=== PATIENT | female | born 1940 | race Caucasian/White ===

== ENCOUNTER 2018-02-22 21:09 | Emergency (ER) | payer MEDICARE, BC, MEDICAID ==
--- NOTE | 2018-02-22 21:43 | EDM.PDOC ---
ED HPI GENERAL MEDICAL PROBLEM - General Chief Complaint: Trauma Stated Complaint: Fall yesterday, head/facial injuries, neck pain Time Seen by Provider: 02/22/18 21:09 Source of Information: Reports: Patient, Family, RN, RN Notes Reviewed History Limitations: Reports: No Limitations - History of Present Illness INITIAL COMMENTS - FREE TEXT/NARRATIVE: Patient is brought to the ED at [facility] by family after she sustained a fall yesterday at the shelter. According to patients daughter this was an unwitnessed fall. She states the patient was walking out of her room with a hand full of shoes when she tripped over her own feet. Apparently the patient hit her head on the wall and then face planted into the floor. Another resident alerted staff. The patient was watch in the NH over the past 24 hours. The patient has a considered nosebleed s/p fall, but that has stopped. Today, the daughter noticed the patient was complaining of neck pain and headache. She has a resolving hematoma over the left forehead. Patient has an abrasion to her nose. Patient's only complaint is neck pain. She currently denies any headache. She denies any visual field disturbances. Family states patient is normally steady on her feet. Patient denies any jaw pain. Patient is able to speak normally, but is confused due to advanced dementia. Patient denies any bowel or bladder incontinence. She denies any hip pain. No numbness, tingling, or paresthesia of any extremity. Onset Date: 02/21/18 - Related Data Allergies Allergy/AdvReac Type Severity Reaction Status Date / Time Penicillins Allergy Cannot Verified 02/22/18 21:40 Remember sertraline [From Zoloft] Allergy Cannot Verified 02/22/18 21:40 Remember Sulfa (Sulfonamide Allergy Rash Verified 02/22/18 21:40 Antibiotics) Home Meds: Home Meds ARIPiprazole [Aripiprazole] 10 mg PO DAILY 02/22/18 [History] Folic Acid 1 mg PO DAILY 02/22/18 [History] Furosemide 20 mg PO DAILY 02/22/18 [History] LORazepam 0.25 mg PO BID 02/22/18 [History] Memantine HCl 10 mg PO BID 02/22/18 [History] Mirtazapine 30 mg PO DAILY 02/22/18 [History] Potassium Chloride [Potassium Chloride Solution] 15 ml PO DAILY 02/22/18 [ History] buPROPion HCl [Wellbutrin SR] 150 mg PO DAILY 02/22/18 [History] buPROPion HCl [Wellbutrin Xl] 300 mg PO DAILY 02/22/18 [History] Review of Systems - Review of Systems Review Of Systems: See Below Constitutional: Denies: Chills, Fever Eyes: Reports: Glasses. Denies: Blurred Vision, Decreased Acuity, Vision Change Ears: Denies: Dizziness, Pain, Bloody Discharge Nose: Reports: Previous Injury (abrasion to nose). Denies: Pain, Bloody Discharge Mouth/Throat: Denies: Bleeding, Pain, Difficulty Swallowing, Painful Swallowing Respiratory: Denies: Shortness of Breath, Cough Cardiovascular: Denies: Chest Pain, Palpitations GI/Abdominal: Denies: Abdominal Pain, Nausea, Vomiting Musculoskeletal: Reports: Neck Pain, Back Pain, Muscle Pain, Muscle Stiffness. Denies: Arm Pain, Hand Pain, Leg Pain Skin: Reports: Bruising (around eye and left cheek; upper left forehead from resolving hematoma) Neurological: Reports: Confusion (chronic due to advanced dementia), Headache. Denies: Numbness, Paresthesia, Tingling, Trouble Speaking, Difficulty Walking, Weakness ED EXAM, GENERAL - Physical Exam Exam: See Below Exam Limited By: No Limitations General Appearance: Alert, No Apparent Distress Eye Exam: Bilateral Eye: EOMI, Normal Inspection, PERRL Ears: Normal External Exam, Normal Canal, Normal TMs Ear Exam: Bilateral Ear: TM normal Nose: Normal Inspection, Normal Mucosa, No Blood, Nasal Tenderness (due to abrasion to tip and bridge of nose). No: Nasal Deformity Throat/Mouth: Normal Inspection, Normal Oropharynx Head: Normocephalic, Facial Tenderness (around eyes and left forehead from fall yesterday) Neck: Normal Inspection, Full Range of Motion, Tender Lateral Respiratory/Chest: No Respiratory Distress, Lungs Clear, Normal Breath Sounds Cardiovascular: Normal Peripheral Pulses, Regular Rate, Rhythm Peripheral Pulses: 2+: Radial (L), Radial (R) GI/Abdominal: Normal Bowel Sounds, Soft, Non-Tender Back Exam: Normal Inspection, Paraspinal Tenderness (thoracic and lower lumbar) Neurological: Alert, Confused (due to chronic advanced dementia), Disoriented Skin Exam: Warm, Dry, Intact, Ecchymosis (around eyes; nose; left forehead) Course - Vital Signs Last Recorded V/S: Last Vital Signs Temp 35.9 C 02/22/18 21:12 Pulse 78 02/22/18 21:12 Resp 16 02/22/18 21:12 BP 154/80 H 02/22/18 21:12 Pulse Ox 100 02/22/18 21:12 - Orders/Labs/Meds Orders: Active Orders 24 hr Category Date Time Status Cervical Spine wo Cont [CT] Stat Exams 02/22/18 21:42 Taken Head wo Cont [CT] Stat Exams 02/22/18 21:42 Taken Lumbar Spine wo Cont [CT] Stat Exams 02/22/18 21:42 Taken Max Facial Sinus wo Cont [CT] Stat Exams 02/22/18 21:51 Taken Thoracic Spine wo Cont [CT] Stat Exams 02/22/18 21:42 Taken Labs: Laboratory Tests 02/22/18 02/22/18 02/22/18 Range/Units 22:17 22:17 22:17 WBC 5.5 (4.0-10.0) x10^3/uL RBC 4.41 (4.00-5.50) x10^6/uL Hgb 13.7 (12.0-16.0) g/dL Hct 41.0 (33.0-47.0) % MCV 93.0 (78.0-93.0) fL MCH 31.1 (26.0-32.0) pg MCHC 33.4 (32.0-36.0) g/dL RDW Coeff of Juan 13.7 (10.0-15.0) % Plt Count 182 (130-400) x10^3/uL Neut % (Auto) 64.4 (50.0-80.0) % Lymph % (Auto) 24.2 L (25.0-50.0) % Brule % (Auto) 9.7 (2.0-11.0) % Eos % (Auto) 1.3 (0.0-4.0) % Baso % (Auto) 0.4 (0.2-1.2) % PT 10.3 (9.6-11.4) SEC INR 1.0 L (2.0-3.5) Sodium 145 (136-145) mmol/L Potassium 3.4 L (3.5-5.1) mmol/L Chloride 103 (98-107) mmol/L Carbon Dioxide 33 H (21-32) mmol/L Anion Gap 12.4 (10-20) mmol/L BUN 17 (7-18) mg/dL Creatinine 1.2 H (0.55-1.02) mg/dL Est Cr Clr Drug Dosing 27.75 mL/min Estimated GFR (MDRD) 43 Glucose 92 (74-106) mg/dL Calcium 9.4 (8.5-10.1) mg/dL - Radiology Interpretation Free Text/Narrative:: CT Head: Left forehead swelling extending into the nasal tissues; associated nondisplaced upper nasal bone fracture incompletely visualized. CT Max/Facial: Acute nasal bone fractures nondisplaced with surrounding facial soft tissue swelling CT C-spine: No acute fracture CT T-spine: No acute fracture CT L-spine: No acute fracture See scanned reports in EMR CT Results Date: 02/22/18 CT Results Time: 22:41 Departure - Departure Time of Disposition: 22:57 Disposition: Home, Self-Care 01 Condition: Fair Clinical Impression: Soft tissue swelling Nasal bone fx-closed Qualifiers: Encounter type: initial encounter Qualified Code(s): S02.2XXA - Fracture of nasal bones, initial encounter for closed fracture Fall Qualifiers: Encounter type: initial encounter Qualified Code(s): W19.XXXA - Unspecified fall, initial encounter Closed head injury without loss of consciousness Qualifiers: Encounter type: initial encounter Qualified Code(s): S09.90XA - Unspecified injury of head, initial encounter - Discharge Information *PRESCRIPTION DRUG MONITORING PROGRAM REVIEWED*: Not Applicable *COPY OF PRESCRIPTION DRUG MONITORING REPORT IN PATIENT DORITA: Not Applicable Instructions: Nasal Fracture, Head Injury, Adult, Fall Prevention in the Home Referrals: Christine Olvera DO [Primary Care Provider] - Forms: ED Department Discharge Additional Instructions: 1. Stay well hydrated and rest 2. Schedule Tylenol 650 mg by mouth every 4 hours for 3 doses, then return to as needed dosing 3. Neuro checks every 4 hours for 24 hours, then stop 4. Apply ice to nasal bridge as able to help with swelling/pain 5. Give one extra dose of KCL solution 20meg/15ml (10%) 6. Follow up with Dr. Olvera next week for a recheck to make sure everything is healing ok - Problem List Review Problem List Initiated/Reviewed/Updated: Yes - My Orders Last 24 Hours: My Active Orders 02/22/18 21:42 Cervical Spine wo Cont [CT] Stat Head wo Cont [CT] Stat Lumbar Spine wo Cont [CT] Stat Thoracic Spine wo Cont [CT] Stat 02/22/18 21:51 Max Facial Sinus wo Cont [CT] Stat - Assessment/Plan Last 24 Hours: My Active Orders 02/22/18 21:42 Cervical Spine wo Cont [CT] Stat Head wo Cont [CT] Stat Lumbar Spine wo Cont [CT] Stat Thoracic Spine wo Cont [CT] Stat 02/22/18 21:51 Max Facial Sinus wo Cont [CT] Stat Assessment:: Nasal bone fracture Fall [facility] w/o LOC
[2018-02-22 22:36] LABS: ANION GAP 12.4 mmol/L (10-20)
== END 2018-02-22 23:10 | disposition home or self-care (01) ==
LOC: VM.ED 21:09
DX: S02.2XXA Fracture of nasal bones, initial encounter for closed fracture (principal); S09.90XA Unspecified injury of head, initial encounter; R22.9 Localized swelling, mass and lump, unspecified; F03.90 Unspecified dementia, unspecified severity, without behavioral disturbance, psychotic disturbance, mood disturbance, and anxiety; W01.198A Fall on same level from slipping, tripping and stumbling with subsequent striking against other object, initial encounter; Y92.129 Unspecified place in nursing home as the place of occurrence of the external cause; Z88.0 Allergy status to penicillin; Z88.2 Allergy status to sulfonamides; Z88.8 Allergy status to other drugs, medicaments and biological substances
CPT/HCPCS: 36415; 70450; 70486; 72125; 72128; 72131; 80048; 85025; 85610; 99285

== ENCOUNTER 2018-07-12 20:13 | Emergency (ER) | payer MEDICARE, BC, MEDICAID ==
--- NOTE | 2018-07-12 20:36 | EDM.PDOC ---
ED HPI GENERAL MEDICAL PROBLEM - General Chief Complaint: Upper Extremity Injury/Pain Stated Complaint: FELL Time Seen by Provider: 07/12/18 20:20 Source of Information: Reports: Patient, EMS, EMS Notes Reviewed, Family History Limitations: Reports: Altered Mental Status (Patient has Alzheimer's) - History of Present Illness INITIAL COMMENTS - FREE TEXT/NARRATIVE: Patient is brought into the emergency department by EMS for a left arm injury. Patient was in the clinic this afternoon for an appointment regarding her left shoulder was found that she did have a slight fracture nondisplaced on her left shoulder. Patient had fallen a couple weeks ago and is followed up today in the clinic. They placed her in a shoulder sling and suggested she follow up with orthopedic. The patient was sent back to the [facility]. It is unknown exactly what happened however the patient was allowed to use the restroom by herself the staff came in a short time afterwards and found that she was sitting on the floor laying on the left shoulder. For safety precautions they wanted her to be checked out. Patient was transported by EMS for further evaluation and management. Currently the patient denies having any pain, chest pain, shortness breath, dizziness, lightheadedness, any GI upset, hip pain or edema. Onset: Sudden Improves with: Reports: None Worsens with: Reports: None Associated Symptoms: Reports: No Other Symptoms - Related Data Allergies Allergy/AdvReac Type Severity Reaction Status Date / Time Penicillins Allergy Cannot Verified 07/12/18 20:44 Remember sertraline [From Zoloft] Allergy Cannot Verified 07/12/18 20:44 Remember Sulfa (Sulfonamide Allergy Rash Verified 07/12/18 20:44 Antibiotics) Home Meds: Home Meds ARIPiprazole [Aripiprazole] 10 mg PO DAILY 02/22/18 [History] Folic Acid 1 mg PO DAILY 02/22/18 [History] Furosemide 20 mg PO DAILY 02/22/18 [History] LORazepam 0.25 mg PO BID 02/22/18 [History] Memantine HCl 10 mg PO BID 02/22/18 [History] Mirtazapine 30 mg PO DAILY 02/22/18 [History] Potassium Chloride [Potassium Chloride Solution] 15 ml PO DAILY 02/22/18 [ History] buPROPion HCl [Wellbutrin SR] 150 mg PO DAILY 02/22/18 [History] buPROPion HCl [Wellbutrin Xl] 300 mg PO DAILY 02/22/18 [History] Past Medical History Cardiovascular History: Reports: High Cholesterol, Hypertension Gastrointestinal History: Reports: Chronic Constipation Psychiatric History: Reports: Alzheimers Disease, Dementia, Depression, Psychosis Review of Systems - Review of Systems Review Of Systems: See Below Constitutional: Reports: No Symptoms Eyes: Reports: No Symptoms Ears: Reports: No Symptoms Nose: Reports: No Symptoms Mouth/Throat: Reports: No Symptoms Respiratory: Reports: No Symptoms Cardiovascular: Reports: No Symptoms GI/Abdominal: Reports: No Symptoms Genitourinary: Reports: No Symptoms Musculoskeletal: Reports: Arm Pain (left shoulder pain ) Skin: Reports: No Symptoms Neurological: Reports: No Symptoms Psychiatric: Reports: Other (alzhiemers) ED EXAM, GENERAL - Physical Exam Exam: See Below Exam Limited By: No Limitations General Appearance: Alert, WD/WN, No Apparent Distress Head: Atraumatic, Normocephalic Neck: Normal Inspection, Supple, Non-Tender Respiratory/Chest: No Respiratory Distress, Lungs Clear, No Accessory Muscle Use , Chest Non-Tender Cardiovascular: Normal Peripheral Pulses, Regular Rate, Rhythm Back Exam: Normal Inspection, Full Range of Motion Extremities: Normal Inspection, Normal Range of Motion, Other (abrasion left hip. no bruising, swelling, or redness noted. ROM intact with no pain noted) Neurological: Alert, CN II-XII Intact, Normal Gait, Normal Reflexes Psychiatric: Normal Affect, Normal Mood Skin Exam: Warm, Dry, Intact, Normal Color, Other (abrasions noted to both knees abrasion to left hip. No hematomas, redness, swelling, or bleeding noted ) Course - Orders/Labs/Meds Orders: Active Orders 24 hr Category Date Time Status Humerus Lt [CR] Stat Exams 07/12/18 20:29 Taken Shoulder Comp Lt [CR] Stat Exams 07/12/18 21:04 Taken - Re-Assessments/Exams Free Text/Narrative Re-Assessment/Exam: 07/12/18 21:43 Pt denies any pain or concerns. VSS. Pt would like to go home Departure - Departure Time of Disposition: 21:45 Disposition: Home, Self-Care 01 Condition: Good Clinical Impression: Fall Qualifiers: Encounter type: initial encounter Qualified Code(s): W19.XXXA - Unspecified fall, initial encounter - Discharge Information *PRESCRIPTION DRUG MONITORING PROGRAM REVIEWED*: Not Applicable *COPY OF PRESCRIPTION DRUG MONITORING REPORT IN PATIENT DORITA: Not Applicable Instructions: Fall Prevention in Hospitals, Adult Forms: ED Department Discharge Additional Instructions: 1. wear shoulder brace until being evaluated via orthopedic 2. Can take ibuprofen or Tylenol for pain and discomfort 3. And use ice over the affected extremity 20 minute intervals 3-4 times a day 4. Follow-up with PCP as needed 5. Activity and diet as tolerated 6. Call with any questions or concerns - My Orders Last 24 Hours: My Active Orders 07/12/18 20:29 Humerus Lt [CR] Stat 07/12/18 21:04 Shoulder Comp Lt [CR] Stat - Assessment/Plan Last 24 Hours: My Active Orders 07/12/18 20:29 Humerus Lt [CR] Stat 07/12/18 21:04 Shoulder Comp Lt [CR] Stat Assessment:: 1. left shoulder injury/pain known fracture new fall Plan: 1. Xray completed in ER. Results reviewed with the patient and family 2. No acute findings on X-ray. Pt will be transferred back to the half-way with no additional orders 3. Pt is advised to continue to wear the sling until evaluated by orthopedic
--- NOTE | 2018-07-13 13:14 | CR ---
[id number] RAD/RAD Shoulder Left 2V Min EXAM: 3 VIEWS LEFT SHOULDER. INDICATION: FALL. COMPARISON: None. DISCUSSION: No fracture, dislocation or other acute osseous abnormality. The visualized left lung is clear. IMPRESSION: 1. No acute osseous abnormalities. French Myers DO 07/13/18 [id number] Thank you for allowing us to participate in the care of your patient.
--- NOTE | 2018-07-13 13:15 | CR ---
[id number] RAD/RAD Humerus Left 2V EXAM: 2 VIEWS LEFT HUMERUS. INDICATION: FALL. COMPARISON: None. DISCUSSION: No fracture, dislocation or other acute osseous abnormality. IMPRESSION: 1. Negative exam. French Myers DO 07/13/18 1314 Thank you for allowing us to participate in the care of your patient.
== END 2018-07-12 21:56 | disposition home or self-care (01) ==
LOC: VM.ED 20:13 → SUPCPDRO 20:13 → VM.ED 21:56
DX: S49.92XA Unspecified injury of left shoulder and upper arm, initial encounter (principal); S80.212A Abrasion, left knee, initial encounter; S80.211A Abrasion, right knee, initial encounter; S70.212A Abrasion, left hip, initial encounter; I10 Essential (primary) hypertension; G30.9 Alzheimer's disease, unspecified; F02.80 Dementia in other diseases classified elsewhere, unspecified severity, without behavioral disturbance, psychotic disturbance, mood disturbance, and anxiety; Z88.0 Allergy status to penicillin; Z88.8 Allergy status to other drugs, medicaments and biological substances; Z79.899 Other long term (current) drug therapy; Z88.2 Allergy status to sulfonamides; W19.XXXA Unspecified fall, initial encounter
CPT/HCPCS: 73030-LT; 73060-LT; 99285

== ENCOUNTER 2019-02-28 19:04 | Emergency (ER) | payer MEDICARE, BC, MEDICAID ==
--- NOTE | 2019-02-28 20:25 | CT ---
[id number] CT/CT Head WO IV EXAM: CT Head WO IV CLINICAL DATA: FALL, STRUCK HEAD COMPARISON STUDY: February 22, 2018. FINDINGS: No intracranial hemorrhage, extra-axial fluid collection, mass, or acute ischemia. Generalized parenchymal atrophy with scattered areas of nonspecific white matter disease, commonly seen as sequela of chronic microvascular ischemia. Right frontal scalp hematoma without underlying calvarial fracture.. Paranasal sinuses and mastoid air cells are clear. IMPRESSION: No acute intracranial findings. French Myers DO 02/28/192022 Thank you for allowing us to participate in the care of your patient.
--- NOTE | 2019-02-28 20:28 | CR ---
[id number] RAD/RAD Pelvis 1V W 2V Right Hip EXAM: 3 VIEWS RIGHT HIP. INDICATION: FALL, R HIP PAIN COMPARISON: None. DISCUSSION: No fracture, dislocation or other acute osseous abnormality. Mild degenerative changes of the right hip. IMPRESSION: 1. NO ACUTE OSSEOUS ABNORMALITIES. French Myers DO 02/28/192025 Thank you for allowing us to participate in the care of your patient.
--- NOTE | 2019-03-01 06:43 | EDM.PDOC ---
ED HPI GENERAL MEDICAL PROBLEM - General Chief Complaint: General Stated Complaint: FELL, PAIN ON RT WRIST, RT HIP Time Seen by Provider: 02/28/19 19:12 Source of Information: Reports: Patient History Limitations: Reports: No Limitations - History of Present Illness INITIAL COMMENTS - FREE TEXT/NARRATIVE: Pt. presents to ER from [facility]. Pt. has a history of dementia, and had an unwitnessed fall at the care center. She has a UTI and was recently changed to Cipro from Macrobid, as the infection was persisting. Pt. complained of R sided hip pain and inability to weight bear, as well as contusion to the head, and contusion to the R wrist. Pt. does not recall the event. Denies any other painful area. Denies any chest pain or shortness of breath. No palpitations. No fever or chills. Denies feeling lightheaded. On arrival to ED, pt. states that the hip pain was resolving. She was able to flex the R hip without difficulty. Onset Date: 02/28/19 Location: Reports: Head, Upper Extremity, Left, Lower Extremity, Right - Related Data Allergies Allergy/AdvReac Type Severity Reaction Status Date / Time Penicillins Allergy Cannot Verified 02/28/19 19:20 Remember sertraline [From Zoloft] Allergy Cannot Verified 02/28/19 19:20 Remember Sulfa (Sulfonamide Allergy Rash Verified 02/28/19 19:20 Antibiotics) Home Meds: Home Meds Folic Acid 1 mg PO DAILY 02/22/18 [History] Furosemide 20 mg PO DAILY 02/22/18 [History] LORazepam 0.25 mg PO BID 02/22/18 [History] Memantine HCl 10 mg PO BID 02/22/18 [History] Mirtazapine 30 mg PO DAILY 02/22/18 [History] Potassium Chloride [Potassium Chloride Solution] 15 ml PO DAILY 02/22/18 [ History] buPROPion HCl [Wellbutrin SR] 150 mg PO DAILY 02/22/18 [History] buPROPion HCl [Wellbutrin Xl] 300 mg PO DAILY 02/22/18 [History] Acetaminophen [Tylenol] 650 mg PO Q4HR PRN 07/12/18 [History] Bisacodyl [Laxative] 5 mg PO DAILY 07/12/18 [History] Bisacodyl [Laxative] 5 mg PO DAILY PRN 07/12/18 [History] Dextromethorphan/guaiFENesin [Robitussin DM] 10 ml PO Q4HR PRN 07/12/18 [History ] Magnesium Hydroxide [Milk of Magnesia] 30 ml PO DAILY PRN 07/12/18 [History] Multivitamin [Daily Multiple Vitamin] 1 each PO DAILY 07/12/18 [History] Sennosides/Docusate Sodium [Senna Plus Tablet] 2 tab PO BID 07/12/18 [History] Calcium Citrate/Vitamin D3 [Citracal + D Maximum Caplet] 1 each PO BID 02/28/19 [History] Cholecalciferol (Vitamin D3) [Vitamin D3] 1,000 unit PO DAILY 02/28/19 [History] Ciprofloxacin HCl [Cipro] 1 tab PO ASDIRECTED 02/28/19 [History] Cranberry Fruit Extract [Cranberry] 425 mg PO TID 02/28/19 [History] Loperamide HCl [Imodium A-D] 2 mg PO ASDIRECTED PRN 02/28/19 [History] Sodium Chloride 5% [Mimi 128 5% Ophth Oint] 3.5 gm EYEBOTH QID 02/28/19 [History ] Vitamin B Complex 1 each PO DAILY 02/28/19 [History] Past Medical History Cardiovascular History: Reports: High Cholesterol, Hypertension Other Cardiovascular History: Unspecified Edema Gastrointestinal History: Reports: Chronic Constipation Psychiatric History: Reports: Alzheimers Disease, Dementia, Depression, Psychosis Social & Family History - Tobacco Use Smoking Status *Q: Never Smoker ED ROS GENERAL - Review of Systems Review Of Systems: See Below Constitutional: Reports: No Symptoms HEENT: Reports: No Symptoms Respiratory: Reports: No Symptoms Cardiovascular: Reports: No Symptoms Endocrine: Reports: No Symptoms GI/Abdominal: Reports: No Symptoms : Reports: No Symptoms Musculoskeletal: Reports: Leg Pain, Joint Pain Skin: Reports: No Symptoms Neurological: Reports: No Symptoms Psychiatric: Reports: No Symptoms Hematologic/Lymphatic: Reports: No Symptoms Immunologic: Reports: No Symptoms ED EXAM, GENERAL - Physical Exam Exam: See Below Exam Limited By: No Limitations General Appearance: Alert, WD/WN, No Apparent Distress Head: Other (contusion R frontal scalp) Neck: Normal Inspection, Supple, Non-Tender, Full Range of Motion Respiratory/Chest: No Respiratory Distress, Lungs Clear, Normal Breath Sounds, No Accessory Muscle Use, Chest Non-Tender Cardiovascular: Normal Peripheral Pulses, Regular Rate, Rhythm, No Edema, No Gallop, No JVD, No Murmur, No Rub GI/Abdominal: Soft, Non-Tender, No Organomegaly, No Distention, No Abnormal Bruit, No Mass Back Exam: Normal Inspection, Full Range of Motion, NT Extremities: Arm Pain, Other (Denies pain in R hip. Small contusion to R volar wrist area.) Neurological: Alert, Oriented, CN II-XII Intact, Normal Cognition, Normal Gait, Normal Reflexes, No Motor/Sensory Deficits Psychiatric: Normal Affect, Normal Mood Skin Exam: Warm, Dry, Intact, Normal Color, No Rash Course - Vital Signs Last Recorded V/S: Last Vital Signs Temp 36.2 C 02/28/19 19:04 Pulse 83 02/28/19 19:04 Resp 18 02/28/19 19:04 BP 157/65 H 02/28/19 19:04 Pulse Ox 98 02/28/19 19:04 - Orders/Labs/Meds Orders: Active Orders 24 hr Category Date Time Status Wrist Comp Min 3V Rt [CR] Stat Exams 02/28/19 19:17 Taken - Radiology Interpretation Free Text/Narrative:: CT brain is negative. Radiographs of R wrist are negative. Radiographs of R hip and pelvis are negative. Departure - Departure Time of Disposition: 21:05 Disposition: DC/Tfer to [facility] 63 Clinical Impression: Scalp contusion, Hip sprain, Wrist contusion - Discharge Information Instructions: Contusion, [id number] Referrals: Christine Olvera DO [Primary Care Provider] - Forms: ED Department Discharge Additional Instructions: Home to rest. Ice painful areas for 10-15 min every 1-2 hours as needed. Tylenol as needed for pain. Follow-up in clinic next week if you are continuing to have pain after 5-7 days - My Orders Last 24 Hours: My Active Orders 02/28/19 19:17 Wrist Comp Min 3V Rt [CR] Stat - Assessment/Plan Last 24 Hours: My Active Orders 02/28/19 19:17 Wrist Comp Min 3V Rt [CR] Stat Plan: Home to rest. Ice painful areas for 10-15 min every 1-2 hours as needed. Tylenol as needed for pain. Follow-up in clinic next week if you are continuing to have pain after 5-7 days
--- NOTE | 2019-03-04 09:24 | CR ---
[id number] RAD/RAD Wrist Right 3V Min EXAM: 3 VIEWS RIGHT WRIST. INDICATION: FALL, WRIST PAIN COMPARISON: None. DISCUSSION: No fracture, dislocation or other acute osseous abnormality. Generalized osseous demineralization. Mild degenerative changes seen throughout the right hand and wrist. IMPRESSION: 1. No acute osseous abnormalities. French Myers DO 03/04/19 0923 Thank you for allowing us to participate in the care of your patient.
== END 2019-02-28 21:05 ==
LOC: VM.ED 19:04
DX: S73.101A Unspecified sprain of right hip, initial encounter (principal); S00.03XA Contusion of scalp, initial encounter; S60.211A Contusion of right wrist, initial encounter; I10 Essential (primary) hypertension; F32.9 Major depressive disorder, single episode, unspecified; Z88.0 Allergy status to penicillin; Z88.8 Allergy status to other drugs, medicaments and biological substances; Z88.2 Allergy status to sulfonamides; Z79.899 Other long term (current) drug therapy; E78.00 Pure hypercholesterolemia, unspecified; W18.39XA Other fall on same level, initial encounter
CPT/HCPCS: 70450; 73110-RT; 99284-25; 99284-GF

== ENCOUNTER 2019-03-13 20:43 | Emergency (ER) | payer MEDICARE, BC, MEDICAID ==
--- NOTE | 2019-03-13 21:25 | EDM.PDOC ---
ED HPI GENERAL MEDICAL PROBLEM - General Stated Complaint: FALL Time Seen by Provider: 03/13/19 21:10 Source of Information: Reports: Patient, EMS, RN History Limitations: Reports: Other (dementia) - History of Present Illness INITIAL COMMENTS - FREE TEXT/NARRATIVE: Pt s/p fall in the memory care unit. No shortening or rotation to right hip, acute pain on palpation to the right hip - Related Data Allergies Allergy/AdvReac Type Severity Reaction Status Date / Time Penicillins Allergy Cannot Verified 02/28/19 19:20 Remember sertraline [From Zoloft] Allergy Cannot Verified 02/28/19 19:20 Remember Sulfa (Sulfonamide Allergy Rash Verified 02/28/19 19:20 Antibiotics) Home Meds: Home Meds Folic Acid 1 mg PO DAILY 02/22/18 [History] Furosemide 20 mg PO DAILY 02/22/18 [History] LORazepam 0.25 mg PO BID 02/22/18 [History] Memantine HCl 10 mg PO BID 02/22/18 [History] Mirtazapine 30 mg PO DAILY 02/22/18 [History] Potassium Chloride [Potassium Chloride Solution] 15 ml PO DAILY 02/22/18 [ History] buPROPion HCl [Wellbutrin SR] 150 mg PO DAILY 02/22/18 [History] buPROPion HCl [Wellbutrin Xl] 300 mg PO DAILY 02/22/18 [History] Acetaminophen [Tylenol] 650 mg PO Q4HR PRN 07/12/18 [History] Bisacodyl [Laxative] 5 mg PO DAILY 07/12/18 [History] Bisacodyl [Laxative] 5 mg PO DAILY PRN 07/12/18 [History] Dextromethorphan/guaiFENesin [Robitussin DM] 10 ml PO Q4HR PRN 07/12/18 [History ] Magnesium Hydroxide [Milk of Magnesia] 30 ml PO DAILY PRN 07/12/18 [History] Multivitamin [Daily Multiple Vitamin] 1 each PO DAILY 07/12/18 [History] Sennosides/Docusate Sodium [Senna Plus Tablet] 2 tab PO BID 07/12/18 [History] Calcium Citrate/Vitamin D3 [Citracal + D Maximum Caplet] 1 each PO BID 02/28/19 [History] Cholecalciferol (Vitamin D3) [Vitamin D3] 1,000 unit PO DAILY 02/28/19 [History] Ciprofloxacin HCl [Cipro] 1 tab PO ASDIRECTED 02/28/19 [History] Cranberry Fruit Extract [Cranberry] 425 mg PO TID 02/28/19 [History] Loperamide HCl [Imodium A-D] 2 mg PO ASDIRECTED PRN 02/28/19 [History] Sodium Chloride 5% [Mimi 128 5% Ophth Oint] 3.5 gm EYEBOTH QID 02/28/19 [History ] Vitamin B Complex 1 each PO DAILY 02/28/19 [History] Past Medical History Cardiovascular History: Reports: High Cholesterol, Hypertension Other Cardiovascular History: Unspecified Edema Gastrointestinal History: Reports: Chronic Constipation Psychiatric History: Reports: Alzheimers Disease, Dementia, Depression, Psychosis ED ROS GENERAL - Review of Systems Review Of Systems: See Below Constitutional: Reports: No Symptoms HEENT: Reports: No Symptoms Respiratory: Reports: No Symptoms Cardiovascular: Reports: No Symptoms Endocrine: Reports: No Symptoms GI/Abdominal: Reports: No Symptoms Musculoskeletal: Reports: Other (right hip pain ) ED EXAM, GENERAL - Physical Exam Exam: See Below General Appearance: Alert, WD/WN Eye Exam: Bilateral Eye: PERRL Ears: Normal External Exam Nose: Normal Inspection Throat/Mouth: Normal Inspection Head: Atraumatic, Normocephalic Neck: Normal Inspection Respiratory/Chest: No Respiratory Distress, Lungs Clear, Normal Breath Sounds, No Accessory Muscle Use, Chest Non-Tender Extremities: Other (pain in the right hip, no shortening or rotation noted, pain on palpation x ray no acute injury noted. ) Neurological: Alert Skin Exam: Warm, Dry, Intact Course - Orders/Labs/Meds Orders: Active Orders 24 hr Category Date Time Status Hip Min 2V or 3V Rt [CR] Stat Exams 03/13/19 20:59 Taken Pelvis 1V or 2V [CR] Stat Exams 03/13/19 20:59 Taken Labs: Laboratory Tests 03/13/19 03/13/19 Range/Units 21:29 21:29 WBC 5.9 (4.0-10.0) x10^3/uL RBC 4.50 (4.00-5.50) x10^6/uL Hgb 13.6 (12.0-16.0) g/dL Hct 40.7 (33.0-47.0) % MCV 90.4 (78.0-93.0) fL MCH 30.2 (26.0-32.0) pg MCHC 33.4 (32.0-36.0) g/dL RDW Coeff of Juan 14.1 (10.0-15.0) % Plt Count 190 (130-400) x10^3/uL Neut % (Auto) 72.7 (50.0-80.0) % Lymph % (Auto) 19.1 L (25.0-50.0) % [place] % (Auto) 6.8 (2.0-11.0) % Eos % (Auto) 0.9 (0.0-4.0) % Baso % (Auto) 0.5 (0.2-1.2) % Sodium 141 (136-145) mmol/L Potassium 3.5 (3.5-5.1) mmol/L Chloride 104 (98-107) mmol/L Carbon Dioxide 30 (21-32) mmol/L Anion Gap 10.5 (10-20) mmol/L BUN 15 (7-18) mg/dL Creatinine 1.0 (0.55-1.02) mg/dL Est Cr Clr Drug Dosing TNP Estimated GFR (MDRD) 53 Glucose 85 (74-106) mg/dL Calcium 9.3 (8.5-10.1) mg/dL Departure - Departure Time of Disposition: 22:28 Disposition: Home, Self-Care 01 Clinical Impression: Hip pain Fall Qualifiers: Encounter type: initial encounter Qualified Code(s): W19.XXXA - Unspecified fall, initial encounter - Discharge Information Referrals: Christine Olvera DO [Primary Care Provider] - Care Plan Goals: Follow up with pcp for continued care. - My Orders Last 24 Hours: My Active Orders 03/13/19 20:59 Hip Min 2V or 3V Rt [CR] Stat Pelvis 1V or 2V [CR] Stat - Assessment/Plan Last 24 Hours: My Active Orders 03/13/19 20:59 Hip Min 2V or 3V Rt [CR] Stat Pelvis 1V or 2V [CR] Stat
[2019-03-13 21:49] LABS: ANION GAP 10.5 mmol/L (10-20); CHLORIDE,CL 104 mmol/L (98-107); SODIUM,NA 141 mmol/L (136-145)
[2019-03-13] MEDS ORDERED: Acetaminophen/oxyCODONE 325-5 MG Tab PO ONE (23:00)
[2019-03-14] MEDS ORDERED: fentaNYL 100 MCG/2 ML SDV IVPUSH ONE (00:22)
--- NOTE | 2019-03-14 08:10 | CR ---
[id number] RAD/RAD Pelvis 1-2V Exam: RAD Pelvis 1-2V Indication:RIGHT HIP PAIN S/P FALL. Comparison: February 28, 2019. Discussion: Acute right femoral neck fracture. No other fractures identified. Impression: As above. Rock Qureshi MD 03/14/19 0887 Thank you for allowing us to participate in the care of your patient.
--- NOTE | 2019-03-14 08:10 | CT ---
[id number] CT/CT Hip Right WO IV Exam: CT Hip Right WO IV Indication: RT HIP PAIN S/P FALL. Comparison: January 2019. Discussion: Acute nondisplaced impacted right femoral neck fracture. No other fractures identified. No dislocation. Impression: Acute right femoral neck fracture. Rock Qureshi MD 03/14/19 0809 Thank you for allowing us to participate in the care of your patient.
== END 2019-03-14 01:35 | disposition home or self-care (01) ==
LOC: VM.ED 20:43
DX: S72.001A Fracture of unspecified part of neck of right femur, initial encounter for closed fracture (principal); I10 Essential (primary) hypertension; F32.9 Major depressive disorder, single episode, unspecified; E78.00 Pure hypercholesterolemia, unspecified; G30.9 Alzheimer's disease, unspecified; F02.80 Dementia in other diseases classified elsewhere, unspecified severity, without behavioral disturbance, psychotic disturbance, mood disturbance, and anxiety; Z88.0 Allergy status to penicillin; Z88.2 Allergy status to sulfonamides; Z88.8 Allergy status to other drugs, medicaments and biological substances; Z79.899 Other long term (current) drug therapy; W19.XXXA Unspecified fall, initial encounter
CPT/HCPCS: 36415; 72170; 73502; 73700; 80048; 85025; 96374; 99285; A9270; J3010; 99283-GF

== ENCOUNTER 2019-08-27 17:48 | Emergency (ER) | payer MEDICARE, BC, MEDICAID ==
[2019-08-27] MEDS ORDERED: hydrALAZINE 20 MG/ML SDV IVPUSH ONE (17:59)
--- NOTE | 2019-08-27 18:00 | EDM.PDOC ---
ED HPI GENERAL MEDICAL PROBLEM - General Time Seen by Provider: 08/27/19 18:00 Source of Information: Reports: Patient, EMS, Family, Custodial Records - History of Present Illness INITIAL COMMENTS - FREE TEXT/NARRATIVE: Patient comes in with hypertensive crisis of 190 systolic. This was recorded at the care center. Her regular doctor is Norma Severino. Currently her blood pressure is 178. She does have an element of dementia. We are checking a urine. Patient also had a hip done last year with pending and family are concerned about her right hip. She also has right ear pain. She does have some pain on palpation of the right hip as well as about the otitis externa and upon examination with some erythematous background of the right ear. We will start a IV. Give her hydralazine 10 mg IV. Rocephin may be a good option for her. Her right ear has been hurting for the past week. She does have to have assistance with ambulation. Her blood pressure did come down nicely after hydralazine 10 mg IV. 150 systolic. I did give her 1 g of Rocephin IV. Her urine did come back as an infection. Culture pending. We'll have her continue Keflex in the morning. X- ray did look good. I will have her follow-up with her primary doctor Dr. Katherine Olvera here in a week. Onset: Today Duration: Getting Worse Right Ear Pain Score (Numeric/FACES): 10 Right Hip Pain Score (Numeric/FACES): 5 - Related Data Allergies Allergy/AdvReac Type Severity Reaction Status Date / Time Penicillins Allergy Cannot Verified 02/28/19 19:20 Remember sertraline [From Zoloft] Allergy Cannot Verified 02/28/19 19:20 Remember Sulfa (Sulfonamide Allergy Rash Verified 02/28/19 19:20 Antibiotics) Home Meds: Home Meds Folic Acid 1 mg PO DAILY 02/22/18 [History] Furosemide 20 mg PO DAILY 02/22/18 [History] LORazepam 0.25 mg PO BID 02/22/18 [History] Memantine HCl 10 mg PO BID 02/22/18 [History] Mirtazapine 30 mg PO DAILY 02/22/18 [History] Potassium Chloride [Potassium Chloride Solution] 15 ml PO DAILY 02/22/18 [ History] buPROPion HCl [Wellbutrin SR] 150 mg PO DAILY 02/22/18 [History] buPROPion HCl [Wellbutrin Xl] 300 mg PO DAILY 02/22/18 [History] Acetaminophen [Tylenol] 650 mg PO Q6H 07/12/18 [History] Bisacodyl [Laxative] 5 mg PO DAILY 07/12/18 [History] Bisacodyl [Laxative] 5 mg PO DAILY PRN 07/12/18 [History] Dextromethorphan/guaiFENesin [Robitussin DM] 10 ml PO Q4HR PRN 07/12/18 [History ] Magnesium Hydroxide [Milk of Magnesia] 30 ml PO DAILY PRN 07/12/18 [History] Multivitamin [Daily Multiple Vitamin] 1 each PO DAILY 07/12/18 [History] Sennosides/Docusate Sodium [Senna Plus Tablet] 2 tab PO DAILY 07/12/18 [History] Calcium Citrate/Vitamin D3 [Citracal + D Maximum Caplet] 1 each PO BID 02/28/19 [History] Cholecalciferol (Vitamin D3) [Vitamin D3] 1,000 unit PO DAILY 02/28/19 [History] Cranberry Fruit Extract [Cranberry] 425 mg PO TID 02/28/19 [History] Loperamide HCl [Imodium A-D] 2 mg PO ASDIRECTED PRN 02/28/19 [History] Sodium Chloride 5% [Mimi 128 5% Ophth Oint] 3.5 gm EYEBOTH QID 02/28/19 [History ] Vitamin B Complex 1 each PO DAILY 02/28/19 [History] Ascorbic Acid [C-1000] 1,000 mg PO DAILY 08/27/19 [History] Bisacodyl [Laxative Suppository] 10 mg RECTAL ASDIRECTED PRN 08/27/19 [History] Calcium Carbonate/Vitamin D3 [Calcium Carb 500 MG] 1 tab PO Q4H PRN 08/27/19 [ History] Hydrocodone/Acetaminophen [Hydrocodon-Acetaminophen 5-325] 1 each PO Q4H PRN [History] Sodium Chloride 5% [Mimi 128 5% Ophth Oint] 3.5 gm EYEBOTH QID 08/27/19 [History ] Zinc Gluconate [Zinc] 50 mg PO DAILY 08/27/19 [History] cephALEXin [Keflex] 500 mg PO Q8H #12 cap 08/27/19 [Rx] polyethylene glycoL 3350 [MiraLAX] 17 gm PO DAILY PRN 08/27/19 [History] Past Medical History Cardiovascular History: Reports: High Cholesterol, Hypertension Other Cardiovascular History: Unspecified Edema Gastrointestinal History: Reports: Chronic Constipation Psychiatric History: Reports: Alzheimers Disease, Dementia, Depression, Psychosis ED ROS GENERAL - Review of Systems Review Of Systems: Unable To Obtain (Patient is a somewhat poor historian.) Reason Not Obtained: poor historian ED EXAM, GENERAL - Physical Exam Exam: See Below Exam Limited By: No Limitations General Appearance: Alert, Moderate Distress Head: Atraumatic Neck: Normal Inspection Respiratory/Chest: No Respiratory Distress, Lungs Clear Cardiovascular: Normal Peripheral Pulses, Regular Rate, Rhythm Extremities: Normal Inspection Neurological: Alert, Oriented Skin Exam: Warm, Dry Lymphatic: No Adenopathy Course - Vital Signs Last Recorded V/S: Last Vital Signs Temp 36.6 C 08/27/19 18:01 Pulse 79 08/27/19 18:46 Resp 18 08/27/19 18:01 BP 148/71 H 08/27/19 18:51 Pulse Ox 96 08/27/19 18:01 - Orders/Labs/Meds Orders: Active Orders 24 hr Category Date Time Status CULTURE URINE [RM] Stat Lab 08/27/19 18:53 Ordered Labs: Laboratory Tests 08/27/19 Range/Units 17:59 Urine Color Yellow (YELLOW) Urine Appearance Clear (CLEAR) Urine pH 6.5 (5.0-8.0) Ur Specific [place] 1.025 Urine Protein Negative (NEGATIVE) mg/dL Urine Glucose (UA) Negative (NEGATIVE) mg/dL Urine Ketones Negative (NEGATIVE) mg/dL Urine Occult Blood Negative (NEGATIVE) Urine Nitrite Positive H (NEGATIVE) Urine Bilirubin Negative (NEGATIVE) Urine Urobilinogen 0.2 (0.2) EU/dL Ur Leukocyte Esterase Trace H (NEGATIVE) Urine RBC Not seen (NOT SEEN) /HPF Urine WBC 10-20 H (NOT SEEN) /HPF Ur Squamous Epith Cells Not seen (NEGATIVE) /HPF Urine Bacteria Moderate H (NEGATIVE) /HPF Urine Mucus Not seen (NEGATIVE) /LPF Meds: Medications Discontinued Medications Generic Name Dose Route Start Last Admin Trade Name Freq PRN Reason Stop Dose Admin Ceftriaxone Sodium 1 gm 08/27/19 18:50 08/27/19 18:57 Rocephin IVPUSH 08/27/19 18:51 1 gm STAT ONE Administration Hydralazine HCl 10 mg 08/27/19 17:59 08/27/19 18:31 Apresoline IVPUSH 08/27/19 18:00 10 mg ONETIME ONE Administration Departure - Departure Time of Disposition: 18:54 Disposition: DC/Tfer to SNF 03 Condition: Good, Fair Clinical Impression: Right hip pain, Hypertensive crisis, unspecified, UTI (urinary tract infection) , uncomplicated Otitis media Qualifiers: Otitis media type: other nonsuppurative Chronicity: acute Laterality: right Recurrence: non-recurrent Qualified Code(s): H65.191 - Other acute nonsuppurative otitis media, right ear - Discharge Information *PRESCRIPTION DRUG MONITORING PROGRAM REVIEWED*: Not Applicable *COPY OF PRESCRIPTION DRUG MONITORING REPORT IN PATIENT DORITA: Not Applicable Prescriptions: cephALEXin [Keflex] 500 mg PO Q8H #12 cap Instructions: Otitis Media, Adult, [id number], Urine Culture and Sensitivity Testing Referrals: Christine Olvera DO [Primary Care Provider] - Forms: ED Department Discharge Additional Instructions: X-ray looks good. Hardware in good position. Urine shows probable UTI. Urine culture is pending. I would recommend treating the infection. Follow-up with her primary physician. Keflex in the interim starting tomorrow. Sepsis Event Note - Focused Exam Vital Signs: Vital Signs Temp Pulse Resp BP Pulse Ox 08/27/19 18:51 148/71 H 08/27/19 18:46 79 151/71 H 08/27/19 18:43 79 158/80 H 08/27/19 18:01 36.6 C 87 18 174/78 H 96 Date Exam was Performed: 08/27/19 Time Exam was Performed: 19:10 - My Orders Last 24 Hours: My Active Orders 08/27/19 18:53 CULTURE URINE [RM] Stat - Assessment/Plan Last 24 Hours: My Active Orders 08/27/19 18:53 CULTURE URINE [RM] Stat
--- NOTE | 2019-08-27 18:49 | CR ---
[id number] RAD/RAD Hip Right 2-3V EXAM: RIGHT HIP 2 VIEWS INDICATION: PAIN. HARDWARE CHECK AFTER FALL. COMPARISON: March 13, 2019. DISCUSSION: Soft tissue attenuation somewhat limits this assessment. There has been interval cannulated screw fixation of a femoral neck fracture. The inferior most fixation screw base is about 7 mm proud to the cortex. Fracture line can no longer be seen. No acute fracture or dislocation. Mild osteoarthritis. IMPRESSION: 1. Interval screw fixation of the right femoral neck. Abdulaziz Berry MD 08/27/19 1848 Thank you for allowing us to participate in the care of your patient.
[2019-08-27] MEDS ORDERED: cefTRIAXone 1 GM Vial IVPUSH ONE (18:50)
== END 2019-08-27 19:20 ==
LOC: VM.ED 17:48
DX: I16.9 Hypertensive crisis, unspecified (principal); M25.551 Pain in right hip; N39.0 Urinary tract infection, site not specified; H65.191 Other acute nonsuppurative otitis media, right ear; E78.00 Pure hypercholesterolemia, unspecified; F32.9 Major depressive disorder, single episode, unspecified; Z88.0 Allergy status to penicillin; Z88.2 Allergy status to sulfonamides; Z88.8 Allergy status to other drugs, medicaments and biological substances; Z79.899 Other long term (current) drug therapy
CPT/HCPCS: 73502; 81001; 87086; 87088; 87186; 96374; 96375; 99284; J0360; J0696

== ENCOUNTER 2019-10-27 15:55 | Emergency (ER) | payer MEDICARE, BC, MEDICAID ==
[2019-10-27 17:00] LABS: CHLORIDE,CL 105 mmol/L (98-107); SODIUM,NA 145 mmol/L (136-145)
--- NOTE | 2019-10-27 17:03 | CT ---
[id number] CT/CT Head WO IV EXAM: NONCONTRAST HEAD CT INDICATION: SEIZURE 3 DAYS AGO. COMPARISON: February 28, 2019. DISCUSSION: Mild to moderate generalized atrophy is similar to the previous examination. Stable moderate multifocal white matter hypoattenuation is nonspecific, but generally ascribed to chronic small vessel ischemia. No mass effect or midline shift. No acute hemorrhage or extra-axial fluid collection. No acute territorial infarct is identified. A limited look at the orbits and paranasal sinuses is unremarkable. IMPRESSION: 1. No acute findings. Abdluaziz Berry MD 10/27/19 4475 Thank you for allowing us to participate in the care of your patient.
[2019-10-27 17:08] LABS: ANION GAP 12.1 mmol/L (10-20)
--- NOTE | 2019-10-27 18:07 | EDM.PDOC ---
ED HPI GENERAL MEDICAL PROBLEM - General Chief Complaint: Neurological Problem Time Seen by Provider: 10/27/19 16:14 Source of Information: Reports: Patient, Family - History of Present Illness INITIAL COMMENTS - FREE TEXT/NARRATIVE: Pt presents to ER per instructions from clinic Pt had seizure 2 days ago at NH Has returned to baseline No further seizures No current complaints No new meds No trauma No illness Instructed by clinic to come to ER Duration: Resolved Prior to Arrival Location: Reports: Generalized Context: Reports: Other (Seizure) - Related Data Allergies Allergy/AdvReac Type Severity Reaction Status Date / Time Penicillins Allergy Cannot Verified 10/27/19 16:19 Remember sertraline [From Zoloft] Allergy Cannot Verified 10/27/19 16:19 Remember Sulfa (Sulfonamide Allergy Rash Verified 10/27/19 16:19 Antibiotics) Home Meds: Home Meds Folic Acid 1 mg PO DAILY 02/22/18 [History] Furosemide 20 mg PO DAILY 02/22/18 [History] LORazepam 0.25 mg PO BID 02/22/18 [History] Memantine HCl 10 mg PO BID 02/22/18 [History] Mirtazapine 30 mg PO DAILY 02/22/18 [History] Potassium Chloride [Potassium Chloride Solution] 15 ml PO DAILY 02/22/18 [ History] buPROPion HCL [Wellbutrin SR] 150 mg PO DAILY 02/22/18 [History] buPROPion HCL [Wellbutrin Xl] 300 mg PO DAILY 02/22/18 [History] Acetaminophen [Tylenol] 650 mg PO Q6H 07/12/18 [History] Dextromethorphan/guaiFENesin [Robitussin DM] 10 ml PO Q4HR PRN 07/12/18 [History ] Magnesium Hydroxide [Milk of Magnesia] 30 ml PO DAILY PRN 07/12/18 [History] Multivitamin [Daily Multiple Vitamin] 1 each PO DAILY 07/12/18 [History] Sennosides/Docusate Sodium [Senna Plus Tablet] 2 tab PO DAILY 07/12/18 [History] bisacodyL [Laxative] 5 mg PO DAILY 07/12/18 [History] bisacodyL [Laxative] 5 mg PO DAILY PRN 07/12/18 [History] Calcium Citrate/Vitamin D3 [Citracal + D Maximum Caplet] 1 each PO BID 02/28/19 [History] Cholecalciferol (Vitamin D3) [Vitamin D3] 1,000 unit PO DAILY 02/28/19 [History] Cranberry Fruit Extract [Cranberry] 425 mg PO TID 02/28/19 [History] Loperamide HCl [Imodium A-D] 2 mg PO ASDIRECTED PRN 02/28/19 [History] Sodium Chloride 5% [Mimi 128 5% Ophth Oint] 3.5 gm EYEBOTH QID 02/28/19 [History ] Vitamin B Complex 1 each PO DAILY 02/28/19 [History] Ascorbic Acid [C-1000] 1,000 mg PO DAILY 08/27/19 [History] Bisacodyl [Laxative Suppository] 10 mg RECTAL ASDIRECTED PRN 08/27/19 [History] Calcium Carbonate/Vitamin D3 [Calcium Carb 500 MG] 1 tab PO Q4H PRN 08/27/19 [ History] Hydrocodone/Acetaminophen [Hydrocodon-Acetaminophen 5-325] 1 each PO Q4H PRN [History] Sodium Chloride 5% [Mimi 128 5% Ophth Oint] 3.5 gm EYEBOTH QID 08/27/19 [History ] Zinc Gluconate [Zinc] 50 mg PO DAILY 08/27/19 [History] cephALEXin [Keflex] 500 mg PO Q8H #12 cap 08/27/19 [Rx] polyethylene glycoL 3350 [MiraLAX] 17 gm PO DAILY PRN 08/27/19 [History] Past Medical History HEENT History: Reports: Other (See Below) Other HEENT History: endothelial corneal dystrophy Cardiovascular History: Reports: High Cholesterol, Hypertension Other Cardiovascular History: Unspecified Edema Gastrointestinal History: Reports: Chronic Constipation Neurological History: Reports: Alzheimers Disease Psychiatric History: Reports: Alzheimers Disease, Dementia, Depression, Psychosis Social & Family History - Family History Family Medical History: Noncontributory - Tobacco Use Smoking Status *Q: Unknown Ever Smoked - Caffeine Use Caffeine Use: Reports: None ED ROS GENERAL - Review of Systems Review Of Systems: See Below Constitutional: Reports: No Symptoms HEENT: Reports: No Symptoms Respiratory: Reports: No Symptoms Cardiovascular: Reports: No Symptoms Endocrine: Reports: No Symptoms GI/Abdominal: Reports: No Symptoms : Reports: No Symptoms Musculoskeletal: Reports: No Symptoms Skin: Reports: No Symptoms Neurological: Reports: Seizure Psychiatric: Reports: No Symptoms - Physical Exam Exam: See Below General Appearance: Alert, WD/WN, No Apparent Distress Eye Exam: Bilateral Eye: EOMI, PERRL Throat/Mouth: Normal Oropharynx Neck: Supple Respiratory/Chest: Lungs Clear Cardiovascular: Regular Rate, Rhythm GI/Abdominal: Soft, Non-Tender Neuro Exam (Abbreviated): Alert, No Motor/Sensory Deficits Extremities: Normal Inspection Psychiatric: Normal Affect, Normal Mood Course - Vital Signs Last Recorded V/S: Last Vital Signs Temp 98.6 F 10/27/19 15:55 Pulse 77 10/27/19 15:55 Resp 16 10/27/19 15:55 BP 149/74 H 10/27/19 15:55 Pulse Ox 97 10/27/19 15:55 - Orders/Labs/Meds Orders: Active Orders 24 hr Category Date Time Status UA RFX TALIB AND CULT IF INDIC [URIN] Stat Lab 10/27/19 16:16 Ordered Labs: Laboratory Tests 10/27/19 10/27/19 Range/Units 16:34 16:34 WBC 4.6 (4.0-10.0) x10^3/uL RBC 4.49 (4.00-5.50) x10^6/uL Hgb 14.0 (12.0-16.0) g/dL Hct 42.1 (33.0-47.0) % MCV 93.8 H D (78.0-93.0) fL MCH 31.2 (26.0-32.0) pg MCHC 33.3 (32.0-36.0) g/dL RDW Coeff of Juan 14.3 (10.0-15.0) % Plt Count 172 (130-400) x10^3/uL Neut % (Auto) 68.0 (50.0-80.0) % Lymph % (Auto) 23.3 L (25.0-50.0) % [place] % (Auto) 7.4 (2.0-11.0) % Eos % (Auto) 0.9 (0.0-4.0) % Baso % (Auto) 0.4 (0.2-1.2) % Sodium 145 (136-145) mmol/L Potassium 4.1 (3.5-5.1) mmol/L Chloride 105 (98-107) mmol/L Carbon Dioxide 32 (21-32) mmol/L Anion Gap 12.1 (10-20) mmol/L BUN 23 H (7-18) mg/dL Creatinine 1.2 H (0.55-1.02) mg/dL Est Cr Clr Drug Dosing TNP Estimated GFR (MDRD) 43 Glucose 103 (74-106) mg/dL Calcium 9.5 (8.5-10.1) mg/dL Corrected Calcium 9.82 (8.5-10.1) mg/dL Total Bilirubin 0.5 (0.2-1.0) mg/dL AST 21 (15-37) U/L ALT 30 (14-59) U/L Alkaline Phosphatase 97 (46-116) U/L Total Protein 6.9 (6.4-8.2) g/dL Albumin 3.6 (3.4-5.0) g/dL Globulin 3.3 Albumin/Globulin Ratio 1.09 - Re-Assessments/Exams Free Text/Narrative Re-Assessment/Exam: 10/27/19 18:[address] Departure - Departure Time of Disposition: 18:15 Disposition: DC/Tfer to SNF 03 Clinical Impression: Seizure - Discharge Information *PRESCRIPTION DRUG MONITORING PROGRAM REVIEWED*: Not Applicable *COPY OF PRESCRIPTION DRUG MONITORING REPORT IN PATIENT DORITA: Not Applicable Instructions: Seizure, Adult Referrals: Christine Olvera DO [Primary Care Provider] - Additional Instructions: Follow up in clinic Sepsis Event Note - Evaluation Sepsis Screening Result: No Definite Risk - Focused Exam Vital Signs: Vital Signs Temp Pulse Resp BP Pulse Ox 10/27/19 15:55 98.6 F 77 16 149/74 H 97 Date Exam was Performed: 10/27/19 Time Exam was Performed: 18:03 - My Orders Last 24 Hours: My Active Orders 10/27/19 16:16 UA RFX TALIB AND CULT IF INDIC [URIN] Stat - Assessment/Plan Last 24 Hours: My Active Orders 10/27/19 16:16 UA RFX TALIB AND CULT IF INDIC [URIN] Stat
== END 2019-10-27 18:15 ==
LOC: VM.ED 15:55
DX: R56.9 Unspecified convulsions (principal); E78.00 Pure hypercholesterolemia, unspecified; I10 Essential (primary) hypertension; G30.9 Alzheimer's disease, unspecified; F02.80 Dementia in other diseases classified elsewhere, unspecified severity, without behavioral disturbance, psychotic disturbance, mood disturbance, and anxiety; F32.9 Major depressive disorder, single episode, unspecified; Z88.0 Allergy status to penicillin; Z88.8 Allergy status to other drugs, medicaments and biological substances
CPT/HCPCS: 36415; 70450; 80053; 85025; 99284-GF; 99285-25

== ENCOUNTER 2021-04-30 19:07 | Emergency (ER) | payer MEDICARE, BC, MEDICAID ==
--- NOTE | 2021-04-30 19:28 | EDM.PDOC ---
ED HPI GENERAL MEDICAL PROBLEM - General Stated Complaint: FALL Time Seen by Provider: 04/30/21 19:15 Source of Information: Reports: Patient, EMS, EMS Notes Reviewed, Halfway Records History Limitations: Reports: Other (dementia, longterm resident here alone) - History of Present Illness INITIAL COMMENTS - FREE TEXT/NARRATIVE: Patient presents via EMS for fall at longterm. Per Report patient was found on the floor of the dining room. She was unable to get up but fall was not witnessed, Patient is not on a blood thinner. AT the scene she complained of neck pain and c collar was placed. unable to weight bear on rigth hip but no obvious deformity. Unknown how long she laid there but longterm staff states it was less than 10 minutes. EMS was able to start a line. Patient is confused at baseline. Onset: Today Location: Reports: Neck, Lower Extremity, Right - Related Data Allergies Allergy/AdvReac Type Severity Reaction Status Date / Time Penicillins Allergy Cannot Verified 10/27/19 16:19 Remember sertraline [From Zoloft] Allergy Cannot Verified 10/27/19 16:19 Remember Sulfa (Sulfonamide Allergy Rash Verified 10/27/19 16:19 Antibiotics) Home Meds: Home Meds Folic Acid 1 mg PO DAILY 02/22/18 [History] Furosemide 20 mg PO DAILY 02/22/18 [History] LORazepam 0.25 mg PO BID 02/22/18 [History] Memantine HCl 10 mg PO BID 02/22/18 [History] Mirtazapine 30 mg PO DAILY 02/22/18 [History] Potassium Chloride [Potassium Chloride Solution] 15 ml PO DAILY 02/22/18 [History] buPROPion HCL [Wellbutrin SR] 150 mg PO DAILY 02/22/18 [History] buPROPion HCL [Wellbutrin Xl] 300 mg PO DAILY 02/22/18 [History] Acetaminophen [Tylenol] 650 mg PO Q6H 07/12/18 [History] Dextromethorphan/guaiFENesin [Robitussin DM] 10 ml PO Q4HR PRN 07/12/18 [History] Magnesium Hydroxide [Milk of Magnesia] 30 ml PO DAILY PRN 07/12/18 [History] Multivitamin [Daily Multiple Vitamin] 1 each PO DAILY 07/12/18 [History] Sennosides/Docusate Sodium [Senna Plus Tablet] 2 tab PO DAILY 07/12/18 [History] bisacodyL [Laxative] 5 mg PO DAILY 07/12/18 [History] bisacodyL [Laxative] 5 mg PO DAILY PRN 07/12/18 [History] Calcium Citrate/Vitamin D3 [Citracal + D Maximum Caplet] 1 each PO BID 02/28/19 [History] Cholecalciferol (Vitamin D3) [Vitamin D3] 1,000 unit PO DAILY 02/28/19 [History] Cranberry Fruit Extract [Cranberry] 425 mg PO TID 02/28/19 [History] Loperamide HCl [Imodium A-D] 2 mg PO ASDIRECTED PRN 02/28/19 [History] Sodium Chloride 5% [Mimi 128 5% Ophth Oint] 3.5 gm EYEBOTH QID 02/28/19 [History] Vitamin B Complex 1 each PO DAILY 02/28/19 [History] Ascorbic Acid [C-1000] 1,000 mg PO DAILY 08/27/19 [History] Bisacodyl [Laxative Suppository] 10 mg RECTAL ASDIRECTED PRN 08/27/19 [History] Calcium Carbonate/Vitamin D3 [Calcium Carb 500 MG] 1 tab PO Q4H PRN 08/27/19 [History] Hydrocodone/Acetaminophen [Hydrocodon-Acetaminophen 5-325] 1 each PO Q4H PRN 08/27/19 [History] Sodium Chloride 5% [Mimi 128 5% Ophth Oint] 3.5 gm EYEBOTH QID 08/27/19 [History] Zinc Gluconate [Zinc] 50 mg PO DAILY 08/27/19 [History] cephALEXin [Keflex] 500 mg PO Q8H #12 cap 08/27/19 [Rx] polyethylene glycoL 3350 [MiraLAX] 17 gm PO DAILY PRN 08/27/19 [History] Past Medical History HEENT History: Reports: Other (See Below) Other HEENT History: endothelial corneal dystrophy Cardiovascular History: Reports: High Cholesterol, Hypertension Other Cardiovascular History: Unspecified Edema Gastrointestinal History: Reports: Chronic Constipation Neurological History: Reports: Alzheimers Disease Psychiatric History: Reports: Alzheimers Disease, Dementia, Depression, Psychosis Social & Family History - Family History Family Medical History: No Pertinent Family History - Tobacco Use Tobacco Use Status *Q: Never Tobacco User - Caffeine Use Caffeine Use: Reports: None - Alcohol Use Alcohol Use History: No Alcohol Use in Last Twelve Months: No - Recreational Drug Use Recreational Drug Use: No Drug Use in Last 12 Months: No ED ROS GENERAL - Review of Systems Review Of Systems: Unable To Obtain Reason Not Obtained: dementia, confusion. alert but no complaints unless moved. Musculoskeletal: Reports: Neck Pain, Joint Pain (right hip) ED EXAM, GENERAL - Physical Exam Exam: See Below Exam Limited By: Other (dementia, difficult to follow commands, alert,) General Appearance: Alert Eye Exam: Bilateral Eye: Normal Inspection, PERRL Ears: Normal External Exam, Normal Canal, Normal TMs Nose: Normal Inspection Throat/Mouth: Normal Inspection, Normal Lips, Normal Voice, Other (dentures intact) Head: Atraumatic Neck: Other (in c collar, midline pain, ) Respiratory/Chest: No Respiratory Distress, Lungs Clear, Normal Breath Sounds, No Accessory Muscle Use, Chest Non-Tender Cardiovascular: Normal Peripheral Pulses, Regular Rate, Rhythm, No Edema, No Murmur GI/Abdominal: Normal Bowel Sounds, Soft, Non-Tender, No Organomegaly, No Mass Extremities: Leg Pain (to internal and external rotation of the right hip. p refers to keep right leg bent. no pain to internal or external rotation of the left hip), Other (upper extremities with full rom, no pain to palaption, small abrasions to the left dorsal hand. no acitve bleeding ) Neurological: Alert. No: Oriented, Normal Cognition Psychiatric: Anxious ED GENERAL MEDICAL PROCEDURES - Laceration/Wound Repair Hand Lac/wound length in cm: 4 Appearance: Superficial, Clean Distal NVT: Neuro & Vascular Intact Skin Prep: Saline Closed with: Dermabond Progress/Comments: skin tears only. tissue intact. cleansed with saline. dermabond to close. NO underlying trauma #1 Interpretation EKG Date: 04/30/21 Time: 19:54 Rhythm: NSR Rate (Beats/Min): 83 [place]: Normal P-Wave: Present (ectopic p at times) QRS: Normal ST-T: Normal QT: Normal Course - Vital Signs Last Recorded V/S: Last Vital Signs Temp 36.6 C 04/30/21 19:50 Pulse 83 04/30/21 19:50 Resp 18 04/30/21 19:50 BP 97/52 L 04/30/21 19:50 Pulse Ox 97 04/30/21 19:50 - Orders/Labs/Meds Orders: Active Orders 24 hr Category Date Time Status EKG Documentation Completion [RC] STAT Care 04/30/21 19:17 Active Vaccine to be Administered/Admin Charge [RC] ASDIRECTED Care 04/30/21 20:18 Active Cervical Spine wo Cont [CT] Stat Exams 04/30/21 19:17 Ordered Chest 1V Frontal [CR] Stat Exams 04/30/21 19:17 Ordered Head wo Cont [CT] Stat Exams 04/30/21 19:17 Ordered Hip Min 1V w Pelvis Rt [CR] Stat Exams 04/30/21 19:17 Ordered Labs: Laboratory Tests 04/30/21 04/30/21 04/30/21 Range/Units 19:40 19:40 19:40 WBC 4.5 (4.0-10.0) x10^3/uL RBC 4.11 (4.00-5.50) x10^6/uL Hgb 12.4 (12.0-16.0) g/dL Hct 38.3 (33.0-47.0) % MCV 93.2 H (78.0-93.0) fL MCH 30.2 (26.0-32.0) pg MCHC 32.4 (32.0-36.0) g/dL RDW Coeff of Juan 13.2 (10.0-15.0) % Plt Count 158 (130-400) x10^3/uL Immature Gran % (Auto) 0.00 (0.00-0.43) % Neut % (Auto) 76.0 (50.0-80.0) % Lymph % (Auto) 14.8 L (25.0-50.0) % Fisher % (Auto) 8.1 (2.0-11.0) % Eos % (Auto) 0.7 (0.0-4.0) % Baso % (Auto) 0.4 (0.2-1.2) % Neut # (Auto) 3.4 (1.8-7.7) x10^3/uL Lymph # (Auto) 0.7 L (1.0-4.8) x10^3/uL Fisher # (Auto) 0.4 (0.0-0.8) x10^3/uL Eos # (Auto) 0.0 (0.0-0.5) x10^3/uL Baso # (Auto) 0.0 (0.0-0.2) x10^3/uL Immature Gran # (Auto) 0.00 (0.00-0.07) x10^3/uL PT 11.1 (9.9-12.5) SEC INR 1.0 L (2.0-3.5) Sodium 144 (136-145) mmol/L Potassium 3.8 (3.5-5.1) mmol/L Chloride 105 (98-107) mmol/L Carbon Dioxide 31 (21-32) mmol/L Anion Gap 11.8 (5-15) mmol/L BUN 35 H (7-18) mg/dL Creatinine 1.1 H (0.55-1.02) mg/dL Est Cr Clr Drug Dosing TNP Estimated GFR (MDRD) 48 Glucose 112 H (70-99) mg/dL Calcium 9.7 (8.5-10.1) mg/dL Corrected Calcium 9.9 (8.5-10.1) mg/dL Total Bilirubin 0.4 (0.2-1.0) mg/dL AST 21 (15-37) U/L ALT 23 (14-59) U/L Alkaline Phosphatase 81 (46-116) U/L Troponin I High Sens 7 (<=51) ng/L Total Protein 7.0 (6.4-8.2) g/dL Albumin 3.7 (3.4-5.0) g/dL Globulin 3.3 Albumin/Globulin Ratio 1.12 Meds: Medications Discontinued Medications Generic Name Dose Route Start Last Admin Trade Name Freq PRN Reason Stop Dose Admin Diphtheria/Tetanus/Acell Pertussis 0.5 ml 04/30/21 20:18 Diphtheria,Pertussis(Acell),Tetanus Vaccine 0.5 Ml Syringe IM 04/30/21 20:19 .ONCE ONE - Radiology Interpretation Free Text/Narrative:: previous orif right hip, no periprosetheic fracture. no pelvic fracture, preliminary reading. chest x-ray, supine and portable, no acute, preliminary CT head with no acute intracranial hemorrhage chronic changes, interpreted by radiology ct c spine limited due to patient motion. no gross cervical spine fracture noted, multilevel degenerative disease interpreted by radiology - Re-Assessments/Exams Free Text/Narrative Re-Assessment/Exam: 04/30/21 19:30 Will get portable pelvis and chest x-ray, check labs and ekg. CT head and cervical spine. Will hold of on medications due to dementia, lack of significant pain, check tetanus 04/30/21 19:32 04/30/21 20:49 able to walk with walker, no pain or problems. FAmily shares that she forgets to use her walker and has been having falls at the longterm. Will send her back no aucte problems other than hand skin tears and tetanus booster. Departure - Departure Time of Disposition: 20:52 Disposition: DC/Tfer to [facility] Condition: Good Clinical Impression: Skin tear, Tetanus toxoid vaccination administered at current visit, Neck pain Fall Qualifiers: Encounter type: initial encounter Qualified Code(s): W19.XXXA - Unspecified fall, initial encounter - Discharge Information *PRESCRIPTION DRUG MONITORING PROGRAM REVIEWED*: Not Applicable *COPY OF PRESCRIPTION DRUG MONITORING REPORT IN PATIENT DORITA: Not Applicable Instructions: Skin Tear, [id number], VIS, Tetanus, Diphtheria (Td); Tetanus, Diphtheria, Pertussis (Tdap) - CDC, Fall Prevention in the Home, Adult, [id number] Referrals: Christine Olvera, [Primary Care Provider] - Additional Instructions: Patient had chest x-ray, pelvis and right hip x-ray, head ct and neck ct without any acute changes. Labs were normal with CBC, Comprehensive metabolic pain, troponin and EKG without concerns. Tetanus booster was administered and is good for 10 years. make note for your records. skin tears on left hand were washed, dermabond was applied. Do not apply antibiotic ointment to the area. Patient was able to ambulate with a walker without problems. Follow up with PCP as needed Sepsis Event Note (ED) - Focused Exam Vital Signs: Vital Signs Temp Pulse Resp BP Pulse Ox 04/30/21 19:50 36.6 C 83 18 97/52 L 97 - My Orders Last 24 Hours: My Active Orders 04/30/21 19:17 EKG Documentation Completion [RC] STAT Cervical Spine wo Cont [CT] Stat Chest 1V Frontal [CR] Stat Head wo Cont [CT] Stat Hip Min 1V w Pelvis Rt [CR] Stat 04/30/21 20:18 Vaccine to be Administered/Admin Charge [RC] ASDIRECTED - Assessment/Plan Last 24 Hours: My Active Orders 04/30/21 19:17 EKG Documentation Completion [RC] STAT Cervical Spine wo Cont [CT] Stat Chest 1V Frontal [CR] Stat Head wo Cont [CT] Stat Hip Min 1V w Pelvis Rt [CR] Stat 04/30/21 20:18 Vaccine to be Administered/Admin Charge [RC] ASDIRECTED
[2021-04-30 20:09] LABS: CHLORIDE,CL 105 mmol/L (98-107); SODIUM,NA 144 mmol/L (136-145)
[2021-04-30 20:10] LABS: ANION GAP 11.8 mmol/L (5-15)
[2021-04-30] MEDS ORDERED: Diphtheria,Pertussis(Acell),Tetanus Vaccine 0.5 ML Syringe IM ONE (20:18)
--- NOTE | 2021-05-02 11:54 | CR ---
[id number] RAD/RAD Chest Portable EXAM: RAD Chest Portable INDICATION: TRAUMA COMPARISON: None. DISCUSSION/IMPRESSION: Cardiomediastinal silhouette is normal in size and contour. Lungs are clear. No pleural effusion or pneumothorax. Rock Qureshi MD 05/02/21 [id number] Thank you for allowing us to participate in the care of your patient.
--- NOTE | 2021-05-02 11:55 | CT ---
[id number] CT/CT Head WO IV EXAM: CT Head WO IV CLINICAL DATA: TRAUMA. COMPARISON STUDY: October 2019. FINDINGS: No intracranial hemorrhage, extra-axial fluid collection, mass, or acute ischemia. No hydrocephalus. Changes of chronic small vessel disease throughout the brain. Findings are similar to the prior examination. Calvarium intact. Paranasal sinuses and mastoid air cells are clear. IMPRESSION: No acute intracranial findings. Rock Qureshi MD 05/02/21 1155 Thank you for allowing us to participate in the care of your patient.
--- NOTE | 2021-05-02 11:55 | CR ---
[id number] RAD/RAD Pelvis W Right Lateral Hip Exam: RAD Pelvis W Right Lateral Hip Indication:TRAUMA Comparison: August 2019. Discussion/Impression: Hardware fixation of a femoral neck fracture. Hardware is intact without evidence of loosening. No acute fracture in the pelvis. No dislocation. Rock Qureshi MD 05/02/21 [id number] Thank you for allowing us to participate in the care of your patient.
--- NOTE | 2021-05-02 11:56 | CT ---
[id number] CT/CT Cervical Spine WO IV EXAM: CT Cervical Spine WO IV INDICATION: TRAUMA. COMPARISON: February 22, 2018. DISCUSSION: Findings are within limitation of extensive patient motion artifact. No fracture or compression deformity. Vertebral bodies remain in normal alignment. Spondylosis. No prevertebral soft tissue edema. Lung apices are clear. IMPRESSION: No acute findings in the cervical spine. Rock Qureshi MD 05/02/21 1155 Thank you for allowing us to participate in the care of your patient.
== END 2021-04-30 21:09 ==
LOC: VM.ED 19:07
DX: S61.412A Laceration without foreign body of left hand, initial encounter (principal); M54.2 Cervicalgia; I10 Essential (primary) hypertension; G30.9 Alzheimer's disease, unspecified; F02.80 Dementia in other diseases classified elsewhere, unspecified severity, without behavioral disturbance, psychotic disturbance, mood disturbance, and anxiety; Z23 Encounter for immunization; Z88.0 Allergy status to penicillin; Z88.8 Allergy status to other drugs, medicaments and biological substances; Z88.2 Allergy status to sulfonamides; Z79.899 Other long term (current) drug therapy; W18.30XA Fall on same level, unspecified, initial encounter; Y92.129 Unspecified place in nursing home as the place of occurrence of the external cause
CPT/HCPCS: 12002; 36415; 70450; 71045; 72125; 80053; 84484; 85025; 85610; 90471; 90715; 93005; 93010; 99284; 99284-25